=== PATIENT | male | born 1960 | race Caucasian/White ===

== ENCOUNTER 2018-06-03 10:26 | Emergency (ER) | payer BC, OTHER ==
--- NOTE | 2018-06-03 10:44 | ER Document Report ---
ED Medical Screen (RME) - General Chief Complaint: Urinary Retention Stated Complaint: UNABLE TO URINATE Time Seen by Provider: 06/03/18 10:43 Primary Care Provider: DERRICK RIVERA MD [Primary Care Provider] - Follow up as needed Mode of Arrival: Ambulatory Information source: Patient TRAVEL OUTSIDE OF THE [place] IN LAST 30 DAYS: No - HPI Patient complains to provider of: urinary retention Onset: Yesterday - pt states he has been unable to void since [place] last nite but just gave us specimen - Related Data Allergies/Adverse Reactions: No Known Allergies Allergy (Verified 06/03/18 10:31) Past Medical History Past Surgical History: Reports: Hx Cholecystectomy - Immunizations Hx Diphtheria, Pertussis, Tetanus Vaccination: Yes Physical Exam - Vital signs Vitals: Temp Pulse Resp BP Pulse Ox 97.8 F 71 16 154/80 H 100 06/03/18 10:40 06/03/18 10:40 06/03/18 10:40 06/03/18 10:40 06/03/18 10:40 Course - Vital Signs Vital signs: Temp Pulse Resp BP Pulse Ox 97.8 F 71 16 154/80 H 100 06/03/18 10:40 06/03/18 10:40 06/03/18 10:40 06/03/18 10:40 06/03/18 10:40 Doctor's Discharge - Discharge Referrals: DERRICK RIVERA MD [Primary Care Provider] - Follow up as needed
[2018-06-03 11:20] LABS: APPEARANCE,URINE CLEAR; BILIRUBIN,URINE NEGATIVE (NEGATIVE); COLOR,URINE YELLOW; GLUCOSE, URINE NEGATIVE (NEGATIVE); KETONES,URINE NEGATIVE (NEGATIVE); LEUKOCYTE ESTERASE,URINE NEGATIVE (NEGATIVE); NITRITE,URINE NEGATIVE (NEGATIVE); PROTEIN,URINE NEGATIVE (NEGATIVE); URINE SPECIFIC GRAVITY 1.012; UROBILINOGEN,URINE NEGATIVE mg/dL (<2.0)
[2018-06-03] MEDS ORDERED: CEPHALEXIN 500 MG CAPSULE PO ONE (14:32)
[2018-06-03 14:45] VITALS: BP 136/82
--- NOTE | 2018-06-03 14:57 | ER Document Report ---
Addendum entered and electronically signed by DEE ANDRES PA-C 06/04/18 11:09: Course - Re-evaluation Re-evalutation: 06/04/18 11:05 Pt urinated in triage and then again after triage. No evidence of cauda equina syndrome and pt with full strength and no numbness/tingling/saddle parasthesia. Pt currently on Bactrim for ?surgical incision ppx. Nurse performed urinary straight catheterization and 400 mL of urine drained from bladder. Pt with urgency, dysuria, and frequency. Urinalysis negative for UTI but could be due to abx. Midline incision mildy erythematous. I placed pt on Keflex 500 mg BID for 7 days because pt with clear clinical signs of UTI and will also cover for MSSA skin infections. No surgical emergency or need for urologic consult as pt does not have acute retention. Stable for discharge with urology referral local. - Vital Signs Vital signs: Temp Pulse Resp BP Pulse Ox 98.4 F 72 16 136/82 H 100 06/03/18 14:43 06/03/18 14:43 06/03/18 14:43 06/03/18 14:43 06/03/18 14:43 Addendum entered and electronically signed by DEE ANDRES PA-C 06/04/18 11:05: Physical Exam - Vital signs Vitals: Temp Pulse Resp BP Pulse Ox 97.8 F 71 16 154/80 H 100 06/03/18 10:40 06/03/18 10:40 06/03/18 10:40 06/03/18 10:40 06/03/18 10:40 - Notes Notes: PHYSICAL EXAMINATION: Reviewed vital signs and charting by RN GENERAL: Alert, interacts well. No acute distress. HEAD: Normocephalic, atraumatic. EYES: Pupils equal, round. Extraocular movements intact. ENT: Oral mucosa moist, tongue midline. NECK: Full range of motion. Trachea midline. LUNGS: Clear to auscultation bilaterally, no wheezes, rales, or rhonchi. No respiratory distress. HEART: Regular rate and rhythm. No murmur ABDOMEN: soft, distended, midline sagittal surgical incision sternum to suprapubic area healing with some erythema just above the umbilicus, suprapubic TTP EXTREMITIES: Moves all 4 extremities spontaneously. No edema, No cyanosis. NEUROLOGIC. Normal speech. PSYCH: Normal affect, normal mood. SKIN: Warm, dry, normal turgor. No rashes or lesions noted. Addendum entered and electronically signed by DEE ANDRES PA-C 06/04/18 11:02: Review of Systems - Review of Systems Constitutional: See HPI EENT: No symptoms reported Cardiovascular: See HPI Respiratory: See HPI Gastrointestinal: See HPI Genitourinary: See HPI Male Genitourinary: See HPI Musculoskeletal: No symptoms reported Skin: No symptoms reported Hematologic/Lymphatic: No symptoms reported Neurological/Psychological: No symptoms reported Addendum entered and electronically signed by DEE ANDRES PA-C 06/04/18 11:00: ED General - General Chief Complaint: Urinary Retention Stated Complaint: UNABLE TO URINATE Time Seen by Provider: 06/03/18 10:43 Primary Care Provider: [facility] [Provider Group] - Follow up as needed DERRICK RIVERA MD [Primary Care Provider] - Follow up as needed Mode of Arrival: Ambulatory Notes: 58M with recent surgery for SBO with Gore removal on 05/20/18 presents for acute urinary retention. Pt states since midnight has had urgency but unable to urinate. Upon arrival to ED was able to urinate a very small amount, then a second time a little more. Denies fevers or chills, vomiting or diarrhea, abdominal pain, saddle parasthesia, numbness/parasthesias of any extremities. No other concerns. TRAVEL OUTSIDE OF THE [place] IN LAST 30 DAYS: No - Related Data Allergies/Adverse Reactions: No Known Allergies Allergy (Verified 06/03/18 10:31) Original Note: ED General - General Chief Complaint: Urinary Retention Stated Complaint: UNABLE TO URINATE Time Seen by Provider: 06/03/18 10:43 Primary Care Provider: DERRICK RIVERA MD [Primary Care Provider] - Follow up as needed Mode of Arrival: Ambulatory TRAVEL OUTSIDE OF THE [place] IN LAST 30 DAYS: No - Related Data Allergies/Adverse Reactions: No Known Allergies Allergy (Verified 06/03/18 10:31) Past Medical History - General Information source: Patient - Social History Smoking Status: Former Smoker Frequency of alcohol use: None Drug Abuse: None Family History: Reviewed & Not Pertinent Patient has suicidal ideation: No Patient has homicidal ideation: No Renal/ Medical History: Denies: Hx Peritoneal Dialysis Past Surgical History: Reports: Hx Abdominal Surgery - SBO 05/2018, Hx Cholecystectomy - Immunizations Hx Diphtheria, Pertussis, Tetanus Vaccination: Yes Physical Exam - Vital signs Vitals: Temp Pulse Resp BP Pulse Ox 97.8 F 71 16 154/80 H 100 06/03/18 10:40 06/03/18 10:40 06/03/18 10:40 06/03/18 10:40 06/03/18 10:40 Course - Vital Signs Vital signs: Temp Pulse Resp BP Pulse Ox 98.4 F 72 16 136/82 H 100 06/03/18 14:43 06/03/18 14:43 06/03/18 14:43 06/03/18 14:43 06/03/18 14:43 Discharge - Discharge Clinical Impression: Dysuria, Urinary frequency Condition: Good Disposition: HOME, SELF-CARE Instructions: Urinary Tract Infection ([facility]) Additional Instructions: You are seen in the emergency department for difficulty with urination. Because you are on Bactrim you may still have a urinary tract infection that just is not showing up in your urine because you are on the antibiotic. You are having the classic symptoms of a UTI so we are going to prescribe you with Keflex 500 mg that you should take 2 times per day for the next 7 days. This may or may not help resolve your symptoms. You should follow-up with the urologist and I will provide you with a referral for urology here in [facility]. If you have a true bladder obstruction toward you are unable to void and you start having absolute severe pain please immediately return to the emergency department. If you start developing fever, chills, nausea, vomiting, have severe abdominal pain please immediately return to the emergency department. Prescriptions: Cephalexin Monohydrate [Keflex 500 mg Capsule] 500 mg PO Q12H 7 Days capsule Referrals: DERRICK RIVERA MD [Primary Care Provider] - Follow up as needed [facility] [Provider [facility]] - Follow up as needed
== END 2018-06-03 14:47 | disposition home or self-care (01) ==
LOC: ER 10:26
DX: R30.0 Dysuria (principal); R35.0 Frequency of micturition; R39.15 Urgency of urination; Z98.890 Other specified postprocedural states; Z87.891 Personal history of nicotine dependence
CPT/HCPCS: 51701; 81001; 99283